=== PATIENT | female | born 1970 | race Caucasian/White ===

== ENCOUNTER 2024-02-10 21:00 | Emergency (ER) | payer BC ==
[~2024-02-10] VITALS: Ht 162.6 cm; Wt 87.1 kg
[2024-02-10 21:10] VITALS: BP_SYST 147; PULSE 88; RESP 18; TEMP 98.3; O2SAT 98
[2024-02-10 22:55] VITALS: BP_SYST 126; PULSE 88; RESP 20; TEMP 97.8; O2SAT 98
== END 2024-02-10 22:55 | disposition home or self-care (01) ==
LOC: SED 21:00
DX: G44.209 Tension-type headache, unspecified, not intractable (principal); R42 Dizziness and giddiness; I10 Essential (primary) hypertension; E78.5 Hyperlipidemia, unspecified; Z88.5 Allergy status to narcotic agent; Z88.6 Allergy status to analgesic agent
CPT/HCPCS: 99281